=== PATIENT | female | born 1980 | race American Indian/Alaskan Native ===

== ENCOUNTER 2017-03-30 21:02 | Emergency (ER) | payer MEDICAID ==
[2017-03-30 21:02] VITALS: BMI 31.1
[2017-03-30 21:34] VITALS: RESP 18; TEMP 98.4
[2017-03-30] MEDS ORDERED: Sodium Chloride 0.9% 1,000 ML IV ONE (22:57)
--- NOTE | 2017-03-30 22:57 | C.PDOC ---
History Of Present Illness 36 y/o female presents to ED with c/o aching, cramping, dull abdominal pain onset after eating at a diner at 2:00 PM today. Patient notes she took Maalox with no relief. Denies fever, chills, nausea, vomiting, diarrhea, or urinary symptoms. Time Seen by Provider: 03/30/17 22:57 Chief Complaint (Nursing): Abdominal Pain History Per: Patient History/Exam Limitations: no limitations Onset/Duration Of Symptoms: Hrs Current Symptoms Are (Timing): Still Present Context: Food Severity: Mild Pain Scale Rating Of: 4 Location Of Pain/Discomfort: Diffuse Radiation Of Pain To:: None Quality Of Discomfort: Dull, Aching, Cramping Associated Symptoms: denies: Fever, Chills, Nausea, Vomiting, Diarrhea, Urinary Symptoms Recent travel outside of the [place]: No Past Medical History Reviewed: Historical Data, Nursing Documentation, Vital Signs Vital Signs: Last Vital Signs Temp 98.4 F 03/31/17 00:30 Pulse 70 03/31/17 00:30 Resp 18 03/31/17 00:30 BP 101/68 03/31/17 00:30 Pulse Ox 98 03/31/17 00:30 - Medical History PMH: Sickle Cell Disease (Sickel Cell Anemia) - [facility] Procedures SUTURE OF LIP LACERATION (10/19/13) TETANUS TOXOID ADMINIST (10/19/13) Family History: States: Unknown Family Hx - Social History Hx Tobacco Use: No Hx Alcohol Use: No Hx Substance Use: No - Immunization History Hx Tetanus Toxoid Vaccination: No Hx Influenza Vaccination: No Hx Pneumococcal Vaccination: No Review Of Systems Constitutional: Negative for: Fever, Chills Cardiovascular: Negative for: Chest Pain Respiratory: Negative for: Cough, Shortness of Breath Gastrointestinal: Positive for: Abdominal Pain. Negative for: Nausea, Vomiting , Diarrhea Genitourinary: Negative for: Dysuria, Frequency Skin: Negative for: Rash Neurological: Negative for: Weakness Psych: Negative for: Anxiety Physical Exam - Physical Exam Appears: Non-toxic, No Acute Distress Skin: Warm, Dry Eye(s): bilateral: Normal Inspection Oral Mucosa: Moist Neck: Supple Chest: Symmetrical Cardiovascular: Rhythm Regular Respiratory: Normal Breath Sounds, No Rales, No Rhonchi, No Wheezing Gastrointestinal/Abdominal: Soft, Tenderness (mild, diffuse), No Distention, No Guarding, No Rebound Back: Normal Inspection Extremity: Normal ROM, Capillary Refill (< 2 sec. ) Extremity: Bilateral: Normal Color And Temperature Neurological/Psych: Oriented x3, Normal Speech, Normal Cognition Gait: Steady ED Course And Treatment - Laboratory Results Result Diagrams: 03/30/17 23:22 03/30/17 23:22 O2 Sat by Pulse Oximetry: 99 (RA) Pulse Ox Interpretation: Normal Progress Note: Treated with Zofran and IVFs. Labs ordered and reviewed. Reevaluation Time: 00:49 Reassessment Condition: Improved Disposition Counseled Patient/Family Regarding: Studies Performed, Diagnosis, Need For Followup - Disposition Disposition: HOME/ ROUTINE Disposition Time: 22:57 Condition: FAIR Additional Instructions: Please follow up with your BEEF SELECTOR and have a repeat HCG level in 5-7 days. Do return if heavy vaginal bleeding, clots or pain Instructions: (ED), Abdominal Pain in (ED) - Clinical Impression Clinical Impression: , Abdominal pain during - Scribe Statement The provider has reviewed the documentation as recorded by the Travis Oliva Provider Attestation: All medical record entries made by the Travis were at my direction and personally dictated by me. I have reviewed the chart and agree that the record accurately reflects my personal performance of the history, physical exam, medical decision making, and the department course for this patient. I have also personally directed, reviewed, and agree with the discharge instructions and disposition.
[2017-03-30] MEDS ORDERED: Sodium Chloride 0.9% 1,000 ML ONE (23:22)
[2017-03-30 23:28] LABS: BASO % 0.5 % (0.0-2.0); EOS % 0.8 % (0.0-4.0); HEMATOCRIT 35.5 % (34.0-47.0); LYMPH % 34.2 % (20.0-40.0); MEAN CORPUSCULAR HEMOGLOBIN 28.4 pg (27.0-31.0); MEAN CORPUSCULAR HGB CONC 32.6 g/dL (33.0-37.0); MEAN PLATELET VOLUME 8.1 fL (7.2-11.7); MONO # 0.5 K/uL (0.0-0.8); MONO % 8.7 % (0.0-10.0); NRBC % 0.1 % (0.0-2.0); RED CELL DISTRIBUTION WIDTH 15.4 % (11.5-14.5); RETIC% 1.7 % (0.5-1.5); WHITE BLOOD COUNT 5.8 K/uL (4.8-10.8)
[2017-03-30 23:36] LABS: CHLORIDE 105 mmol/L (98-107); SODIUM 136 mmol/L (132-148)
[2017-03-30 23:38] LABS: AST/SGOT 23 U/L (14-36); BILIRUBIN,TOTAL 0.7 mg/dL (0.2-1.3); CARBON DIOXIDE 23 mmol/L (22-30); GFR AFRICAN-AMERICAN > 60
[2017-03-30 23:39] LABS: ALKALINE PHOSPHATASE 58 U/L (38-126); ALT/SGPT 22 U/L (9-52); BLOOD UREA NITROGEN 9 mg/dL (7-17); CALCIUM 8.7 mg/dl (8.6-10.4); GLUCOSE,RANDOM 94 mg/dL (65-105); TOTAL PROTEIN 7.5 g/dL (6.3-8.3)
[2017-03-30 23:43] LABS: RBC URINE 38 /hpf (0-3); URINE BACTERIA FEW (<OCC); URINE BILIRUBIN NEGATIVE (NEGATIVE); URINE BLOOD 3+ (NEGATIVE); URINE COLOR Yellow (YELLOW); URINE GLUCOSE (UA) NORMAL (Normal); URINE KETONE NEGATIVE (NEGATIVE); URINE LEUKOCYTE ESTERASE TRACE Leu/uL (Negative); URINE PROTEIN NEGATIVE (NEGATIVE); URINE UROBILINOGEN NORMAL mg/dL (0.2-1.0); WBC URINE 5 /hpf (0-5)
[2017-03-31 00:32] VITALS: BP 101/68; PULSE 70
[2017-03-31 00:51] VITALS: O2SAT 99
== END 2017-03-31 01:00 | disposition home or self-care (01) ==
LOC: C.ER 21:02
DX: O26.891 Other specified pregnancy related conditions, first trimester (principal); R10.84 Generalized abdominal pain; Z3A.00 Weeks of gestation of pregnancy not specified
CPT/HCPCS: 80053; 81001; 83690; 84702; 84703; 85025; 85044; 85610; 85730; 96361; 96374; 99284; J2405; J7040

== ENCOUNTER 2017-04-02 20:28 | Emergency (ER) | payer MEDICAID ==
[2017-04-02 20:29] VITALS: BMI 31.1
[2017-04-02 20:37] VITALS: O2SAT 99
[2017-04-02] MEDS ORDERED: Sodium Chloride 0.9% 1,000 ML IV ONE (21:00)
--- NOTE | 2017-04-02 21:05 | C.PDOC ---
History Of Present Illness A 36 y/o female who's LMP was February 20, c/o persistent vaginal bleeding and abdominal pain that has been worsening over the past 2 days. Pt was here 2 days ago for the same complaint. Pt denies fever, chills, nausea, vomiting, diarrhea , vaginal discharge, chest pain, dysuria, hematuria, or any other complaints. Time Seen by Provider: 04/02/17 21:03 Chief Complaint (Nursing): Abdominal Pain History Per: Patient History/Exam Limitations: no limitations Onset/Duration Of Symptoms: Days Current Symptoms Are (Timing): Still Present Severity: Mild Location Of Pain/Discomfort: Suprapubic Radiation Of Pain To:: None Associated Symptoms: denies: Fever, Chills, Nausea, Vomiting Recent travel outside of the [place]: No Additional History Per: Patient Abnormal Vaginal Bleeding: Yes Last Menstral Period: February 20, 2017 Past Medical History Reviewed: Historical Data, Nursing Documentation, Vital Signs Vital Signs: Last Vital Signs Temp 98.7 F 04/03/17 00:05 Pulse 82 04/03/17 00:05 Resp 20 04/03/17 00:05 BP 107/66 04/03/17 00:05 Pulse Ox 99 04/03/17 00:41 - Medical History PMH: Sickle Cell Disease (Sickel Cell Anemia) Denies: Chronic Kidney Disease - [facility] Procedures SUTURE OF LIP LACERATION (10/19/13) TETANUS TOXOID ADMINIST (10/19/13) Family History: States: Unknown Family Hx - Social History Hx Tobacco Use: No Hx Alcohol Use: No Hx Substance Use: No - Immunization History Hx Tetanus Toxoid Vaccination: No Hx Influenza Vaccination: No Hx Pneumococcal Vaccination: No Review Of Systems Except As Marked, All Systems Reviewed And Found Negative. Constitutional: Negative for: Fever, Chills Cardiovascular: Negative for: Chest Pain Gastrointestinal: Positive for: Abdominal Pain. Negative for: Nausea, Vomiting , Diarrhea Genitourinary: Positive for: Vaginal Bleeding. Negative for: Dysuria, Hematuria , Vaginal Discharge Physical Exam - Physical Exam Appears: Non-toxic, No Acute Distress Skin: Warm, Dry Head: Atraumatic, Normacephalic Eye(s): bilateral: Normal Inspection Oral Mucosa: Moist Neck: Trachea Midline, Supple Chest: Symmetrical Cardiovascular: Rhythm Regular Respiratory: Normal Breath Sounds, No Accessory Muscle Use, No Rales, No Rhonchi , No Wheezing Gastrointestinal/Abdominal: Soft, Tenderness (Hypogastric tenderness), No Guarding, No Rebound Back: Normal Inspection, No CVA Tenderness Pelvic: Vaginal Bleeding (Minimal bleeding noted), No Vaginal Discharge, No Cervical Motion Tenderness, No Cervix Open (Closed) Neurological/Psych: Oriented x3, Normal Speech, Normal Cognition, Other (No focal deficit) Gait: Steady ED Course And Treatment - Laboratory Results Result Diagrams: 04/02/17 21:19 04/02/17 21:19 O2 Sat by Pulse Oximetry: 99 (RA) Pulse Ox Interpretation: Normal - CT Scan/US US Other Rad Studies (CT/US): Interpreted By Me, Read By Radiologist CT/US Interpretation: EXAM: US First Trimester, Transabdominal. CLINICAL HISTORY: 36 years old, female; Signs and symptoms; Other: Vag spotting ; ; Prior surgery; Surgery. date: 6+ months; Surgery type: Ruptured ectopic 2009 one of fallopian tube removed; Patient HX: Vag spotting / pain; Additional info: Abd pain/ vaginal bleed. TECHNIQUE: Real-time transabdominal obstetrical ultrasound of the maternal pelvis and a first trimester. with image documentation. COMPARISON: No relevant prior studies available. FINDINGS: Gestation: No intrauterine gestational sac. Uterus/cervix: Endometrium: 1.4 cm in thickness. Closed cervix. Ovaries: RIGHT ovary: Normal. LEFT ovary: Probable 1.6 x 1.6 x 1.6 cm corpus luteal cyst. No. adnexal masses. Free fluid: No significant free fluid. IMPRESSION: 1. No intrauterine gestation. DDX: Early IUP, missed , ectopic . 2. Incidental/non-acute findings are described above. EXAM: US , Transvaginal. CLINICAL HISTORY: 36 years old, female; Signs and symptoms; Other: Vag spotting; ; Prior surgery; Surgery. date: 6+ months; Surgery type: Ruptured ectopic 2009 one of fallopian tube removed; Patient HX: Vag spotting / pain; Additional info: Abd pain/ vaginal bleed. TECHNIQUE: Real -time transvaginal obstetrical ultrasound of the maternal pelvis and a first trimester . with image documentation. Transvaginal imaging was used for better evaluation of the fetus and. adnexa. COMPARISON: No relevant prior studies available. FINDINGS: Gestation: No intrauterine gestational sac. Uterus/cervix: Endometrium: 1.4 cm in thickness. Closed cervix. Ovaries: RIGHT ovary: Normal. LEFT ovary: Probable 1.6 x 1.6 x 1.6 cm corpus luteal cyst. No. adnexal masses. Free fluid: No significant free fluid. IMPRESSION: 1. No intrauterine gestation. DDX: Early IUP, missed , ectopic . 2. Incidental/non-acute findings are described above. Medical Decision Making Medical Decision Making: Impression: A 36 y/o female who's LMP was February 20, c/o persistent vaginal bleeding and abdominal pain that has been worsening over the past 2 days. Plans: Blood labs IV fluids US Pelvis UA Reassess Disposition Counseled Patient/Family Regarding: Diagnosis - Disposition Referrals: [facility] [Outside] Disposition: HOME/ ROUTINE Disposition Time: 00:29 Condition: STABLE Instructions: Threatened Miscarriage (ED) Forms: Work Excuse - POA Present On Arrival: None - Clinical Impression Clinical Impression: Threatened in early - Scribe Statement The provider has reviewed the documentation as recorded by the Scribe Marilyn maddox All medical record entries made by the Chikaibabbie were at my direction and personally dictated by me. I have reviewed the chart and agree that the record accurately reflects my personal performance of the history, physical exam, medical decision making, and the department course for this patient. I have also personally directed, reviewed, and agree with the discharge instructions and disposition.
[2017-04-02] MEDS ORDERED: Sodium Chloride 0.9% 1,000 ML ONE (21:06)
[2017-04-02 21:13] LABS: RBC URINE 4 /hpf (0-3); URINE BACTERIA FEW (<OCC); URINE BILIRUBIN NEGATIVE (NEGATIVE); URINE BLOOD 3+ (NEGATIVE); URINE COLOR Yellow (YELLOW); URINE GLUCOSE (UA) NORMAL (Normal); URINE KETONE NEGATIVE (NEGATIVE); URINE LEUKOCYTE ESTERASE TRACE Leu/uL (Negative); URINE PROTEIN 1+ mg/dL (NEGATIVE); URINE UROBILINOGEN NORMAL mg/dL (0.2-1.0); WBC URINE 4 /hpf (0-5)
[2017-04-02 21:27] LABS: BASO % 0.7 % (0.0-2.0); EOS % 0.8 % (0.0-4.0); HEMATOCRIT 36.2 % (34.0-47.0); LYMPH # 1.9 K/uL (1.0-4.3); LYMPH % 33.4 % (20.0-40.0); MEAN CORPUSCULAR HEMOGLOBIN 28.2 pg (27.0-31.0); MEAN CORPUSCULAR HGB CONC 32.4 g/dL (33.0-37.0); MEAN PLATELET VOLUME 8.7 fL (7.2-11.7); MONO # 0.4 K/uL (0.0-0.8); MONO % 6.8 % (0.0-10.0); NRBC % 0.1 % (0.0-2.0); RED CELL DISTRIBUTION WIDTH 15.4 % (11.5-14.5); WHITE BLOOD COUNT 5.8 K/uL (4.8-10.8)
[2017-04-02 21:37] LABS: CHLORIDE 101 mmol/L (98-107)
[2017-04-02 21:38] LABS: POTASSIUM 3.8 mmol/L (3.6-5.2); SODIUM 134 mmol/L (132-148)
[2017-04-02 21:40] LABS: ALKALINE PHOSPHATASE 55 U/L (38-126); ALT/SGPT 20 U/L (9-52); AST/SGOT 22 U/L (14-36); BILIRUBIN,TOTAL 0.8 mg/dL (0.2-1.3); BLOOD UREA NITROGEN 6 mg/dL (7-17); CARBON DIOXIDE 22 mmol/L (22-30); GFR AFRICAN-AMERICAN > 60; TOTAL PROTEIN 7.4 g/dL (6.3-8.3)
[2017-04-02 21:41] LABS: CALCIUM 8.4 mg/dl (8.6-10.4); GLUCOSE,RANDOM 98 mg/dL (65-105)
[2017-04-03 00:07] VITALS: BP 107/66; PULSE 82; RESP 20; TEMP 98.7
--- NOTE | 2017-04-03 00:23 | US ---
EXAM: US First Trimester, Transabdominal CLINICAL HISTORY: 36 years old, female; Signs and symptoms; Other: Vag spotting; ; Prior surgery; Surgery date: 6+ months; Surgery type: Ruptured ectopic 2009 one of fallopian tube removed; Patient HX: Vag spotting / pain; Additional info: Abd pain/ vaginal bleed TECHNIQUE: Real-time transabdominal obstetrical ultrasound of the maternal pelvis and a first trimester with image documentation. COMPARISON: No relevant prior studies available. FINDINGS: Gestation: No intrauterine gestational sac. Uterus/cervix: Endometrium: 1.4 cm in thickness. Closed cervix. Ovaries: RIGHT ovary: Normal. LEFT ovary: Probable 1.6 x 1.6 x 1.6 cm corpus luteal cyst. No adnexal masses. Free fluid: No significant free fluid. IMPRESSION: 1. No intrauterine gestation. DDX: Early IUP, missed , ectopic . 2. Incidental/non-acute findings are described above. EXAM: US , Transvaginal CLINICAL HISTORY: 36 years old, female; Signs and symptoms; Other: Vag spotting; ; Prior surgery; Surgery date: 6+ months; Surgery type: Ruptured ectopic 2009 one of fallopian tube removed; Patient HX: Vag spotting / pain; Additional info: Abd pain/ vaginal bleed TECHNIQUE: Real-time transvaginal obstetrical ultrasound of the maternal pelvis and a first trimester with image documentation. Transvaginal imaging was used for better evaluation of the fetus and adnexa. COMPARISON: No relevant prior studies available. FINDINGS: Gestation: No intrauterine gestational sac. Uterus/cervix: Endometrium: 1.4 cm in thickness. Closed cervix. Ovaries: RIGHT ovary: Normal. LEFT ovary: Probable 1.6 x 1.6 x 1.6 cm corpus luteal cyst. No adnexal masses. Free fluid: No significant free fluid.
== END 2017-04-03 01:24 | disposition home or self-care (01) ==
LOC: C.ER 20:28
DX: O20.0 Threatened abortion (principal); Z3A.00 Weeks of gestation of pregnancy not specified

== ENCOUNTER 2017-04-05 03:43 | Observation (INO) | payer MEDICAID ==
[2017-04-05 03:43] VITALS: BMI 31.1
[2017-04-05] MEDS ORDERED: Sodium Chloride 0.9% 1,000 ML IV ONE ×3 (04:13→10:22)
--- NOTE | 2017-04-05 04:13 | C.PDOC ---
History Of Present Illness Patient presents to the ED with complaints of sharp left flank pain beginning just prior to arrival awaking her from her sleep. Patient states she is and has had intermittent bleeding since finding out she was . Patient's hCG yesterday was 3749, slight increase from two days prior to that at 3055. Patient denies any nausea, vomiting, or other complaints at this time. Time Seen by Provider: 04/05/17 04:13 Chief Complaint (Nursing): Female Genitourinary History Per: Patient History/Exam Limitations: no limitations Onset/Duration Of Symptoms: Hrs (prior to arrival ) Current Symptoms Are (Timing): Still Present Severity: Moderate Pain Scale Rating Of: 6 Quality Of Discomfort: Sharp Associated Symptoms: denies: Fever, Chills, Nausea, Vomiting, Diarrhea Recent travel outside of the [place]: No Abnormal Vaginal Bleeding: Yes Past Medical History Reviewed: Historical Data, Nursing Documentation, Vital Signs Vital Signs: Last Vital Signs Temp 97.7 F 04/05/17 04:03 Pulse 74 04/05/17 04:03 Resp 20 04/05/17 04:03 BP 118/78 04/05/17 04:03 Pulse Ox 100 04/05/17 06:10 - Medical History PMH: Sickle Cell Disease (Sickel Cell Anemia) - [facility] Procedures SUTURE OF LIP LACERATION (10/19/13) TETANUS TOXOID ADMINIST (10/19/13) Family History: States: Unknown Family Hx - Social History Hx Tobacco Use: No Hx Alcohol Use: No Hx Substance Use: No - Immunization History Hx Tetanus Toxoid Vaccination: No Hx Influenza Vaccination: No Hx Pneumococcal Vaccination: No Review Of Systems Constitutional: Negative for: Fever, Chills Cardiovascular: Negative for: Chest Pain, Palpitations Respiratory: Negative for: Cough, Shortness of Breath Gastrointestinal: Positive for: Other (left flank pain ). Negative for: Nausea , Vomiting, Diarrhea Genitourinary: Positive for: Vaginal Bleeding Physical Exam - Physical Exam Appears: Non-toxic, Other (in distress) Skin: Warm, Dry Head: Normacephalic Eye(s): bilateral: Normal Inspection, PERRL, EOMI Oral Mucosa: Moist Neck: Supple Chest: Symmetrical, No Deformity Cardiovascular: Rhythm Regular Respiratory: No Rales, No Rhonchi, No Wheezing Gastrointestinal/Abdominal: Soft, No Distention, No Guarding, No Rebound, Other (Left flank pain ) Back: No CVA Tenderness, No Vertebral Tenderness, No Paraspinal Tenderness Extremity: Normal ROM, No Tenderness, Capillary Refill (good capillary refill, less than 2 seconds ) Extremity: Bilateral: Atraumatic Neurological/Psych: Oriented x3 Gait: Steady ED Course And Treatment - Laboratory Results Result Diagrams: 04/05/17 05:36 04/05/17 05:36 O2 Sat by Pulse Oximetry: 100 (room air ) Pulse Ox Interpretation: Normal Progress Note: spoke with dr ledezma about the possibility of the pt having an ectopic. US is pending. 5:[address] anaya at bedside with the pt. 6:09 vitals stable Disposition Counseled Patient/Family Regarding: Studies Performed, Diagnosis - Disposition Disposition Time: 04:13 Condition: UNKNOWN - Clinical Impression Clinical Impression: Vaginal bleeding - Scribe Statement The provider has reviewed the documentation as recorded by the Scribe Cheri Meneses All medical record entries made by the Scribe were at my direction and personally dictated by me. I have reviewed the chart and agree that the record accurately reflects my personal performance of the history, physical exam, medical decision making, and the department course for this patient. I have also personally directed, reviewed, and agree with the discharge instructions and disposition. Physician Patient Turnover Patient Signed Over To: Noreen Rocha Handoff Comments: pending us resuls and admission to dr smith
[2017-04-05] MEDS ORDERED: Sodium Chloride 0.9% 1,000 ML ONE (05:30)
[2017-04-05 05:40] LABS: BASO % 0.8 % (0.0-2.0); EOS # 0.1 K/uL (0.0-0.7); EOS % 2.1 % (0.0-4.0); HEMOGLOBIN 11.9 g/dL (11.0-16.0); LYMPH # 1.8 K/uL (1.0-4.3); LYMPH % 34.1 % (20.0-40.0); MEAN CORPUSCULAR HEMOGLOBIN 28.4 pg (27.0-31.0); MEAN CORPUSCULAR HGB CONC 32.7 g/dL (33.0-37.0); MEAN PLATELET VOLUME 8.5 fL (7.2-11.7); MONO # 0.5 K/uL (0.0-0.8); MONO % 8.7 % (0.0-10.0); NEUT # 2.8 K/uL (1.8-7.0); NEUT % 54.3 % (50.0-75.0); RBC 4.19 Mil/uL (3.80-5.20); RED CELL DISTRIBUTION WIDTH 15.2 % (11.5-14.5); WHITE BLOOD COUNT 5.2 K/uL (4.8-10.8)
[2017-04-05 06:00] LABS: ALBUMIN 3.9 g/dL (3.5-5.0)
[2017-04-05 06:03] LABS: ALB/GLOB RATIO 0.9 (1.0-2.1); AST/SGOT 26 U/L (14-36); BLOOD UREA NITROGEN 8 mg/dL (7-17); GFR AFRICAN-AMERICAN > 60; GFR NON-AFRICAN AMERICAN > 60
[2017-04-05 06:04] LABS: ALT/SGPT 19 U/L (9-52); CALCIUM 8.7 mg/dl (8.6-10.4)
--- NOTE | 2017-04-05 06:38 | CP.PCM.CON ---
History of Present Illness - History of Present Illness History of Present Illness: Asked by Dr. Gunn to evaluate patient: h/o ectopic, no with worsening abdominal pain and vaginal bleeding Patient received in E.D. Bed 11, significant present. Patient sitting up in NAD 36 yo , LMP 02/20/17, 6w 2d, Patient presents with c/o worsening lower abodminal pain, onset 0230 hours, described as "excruciating, throbbing pain, that hurt when I walk, breathe; even when I went to relieve myself. I knew it shouldn't hurt that much". Denies loss of consciousness; nausea or vomiting. Patient also with vaginal bleeding x 1 week. Ate a meal of steak, shrimp, mashed potatoes and corn at approx 0200 hours. HPI: 2 prior E.D. visit c/o abdominal pain, and vaginal spotting, 03/30 and . Quantitative HCG were obtained 03/30, 2204.30 and 04/02 3055.40. Ultrasound showed no discrete IUP and normal ovaries bilaterally and no free fluid. Patient with h/o ectopic 2009, S/P salpingectomy and 2 intrauterine pregnancies subsequently. Patient has a priv veterinary surgeon, Dr. Perez: she has been followed by him for this ; she was given the option of methotrexate with the concern of possible ectopic . As this is a desired , patient opted for conservative management. Dr. Perez has been notified P Ob.: 2009, ectopic . 2012, C/S, male, 5lb 14oz, [facility], [facility] [place]. 12/2015 , spont ab approx 4 week. P LIVE IN [employer] [place]: 9 x monthly x 5. Denies STIs or abnormal Pap PMH: sickle cell anemia; last crisis 2013 PSH: C/S; laparoscopic (right) salpingectomy; back surgery (L5-L6) Allergic: penicilin = rash Meds: PNV - QD; Folic acid 500 mg po QD; Demerol 10 mg p.o., PRN Soc Hx: denies tobacco, illicit drug or EtOH use. 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 Wtih FOB x 10 years; lives with him and htheir son Fam Hx: Mother alive 54y.o.- breast CA survivor, diagnosed age 35. Father alive 62 y.o. HTN, DM, hypercholesterol. MGM - breast CA Review of Systems - Review of Systems All systems: reviewed and no additional remarkable complaints except - Reproductive: Female Reproductive:Female: As Per HPI Past Patient History - Infectious Disease Hx of Infectious Diseases: None - Past Social History Smoking Status: Never Smoked Alcohol: None Drugs: Denies Home Situation {Lives}: With Family - CARDIAC Hx Cardiac Disorders: No - PULMONARY Hx Respiratory Disorders: No - NEUROLOGICAL Hx Neurological Disorder: No - HEENT Hx HEENT Problems: No - RENAL Hx Chronic Kidney Disease: No - ENDOCRINE/METABOLIC Hx Endocrine Disorders: No - HEMATOLOGICAL/ONCOLOGICAL Hx Sickle Cell Disease: Yes (Sickel Cell Anemia) - INTEGUMENTARY Hx Dermatological Problems: No - MUSCULOSKELETAL/RHEUMATOLOGICAL Hx Musculoskeletal Disorders: No - GASTROINTESTINAL Hx Gastrointestinal Disorders: No - GENITOURINARY/GYNECOLOGICAL Hx Genitourinary Disorders: No - PSYCHIATRIC Hx Psychophysiologic Disorder: No Hx Substance Use: No - SURGICAL HISTORY Hx Surgeries: Yes Hx Section: Yes (2012) Hx Musculoskeletal Surgery: Yes (lower back) Other/Comment: ectopic surgery 2009 - ANESTHESIA Hx Anesthesia: Yes Hx Anesthesia Reactions: No Meds Home Medications: Home Medication List Medication Instructions Recorded Confirmed Type oxyCODONE/Acetaminophen [Percocet 2 tab PO Q4H PRN #20 tab 04/06/17 Rx 5/325 mg Tab] Allergies/Adverse Reactions: Allergies Allergy/AdvReac Type Severity Reaction Status Date / Time Penicillins Allergy RASH Verified 04/05/17 04:06 Physical Exam - Constitutional Appears: No Acute Distress - Head Exam Head Exam: NORMAL INSPECTION - Eye Exam Eye Exam: Normal appearance - ENT Exam ENT Exam: Mucous Membranes Moist - Neck Exam Neck exam: Positive for: Normal Inspection - Respiratory Exam Respiratory Exam: Clear to Auscultation Bilateral, NORMAL BREATHING PATTERN - Cardiovascular Exam Cardiovascular Exam: REGULAR RHYTHM - GI/Abdominal Exam GI & Abdominal Exam: Normal Bowel Sounds Additional comments: Haled Pfannenstiel scar. Obese; Soft. (+) rebound tenderness in LLQ; no peritoneal signs - Exam Additional comments: No cervical motion tenderness. (+) left adnexal tenderness; no right adnexal tenderness. No appreciable adnexal masses bilaterally. AV uterus, approx 12 weeks - Extremities Exam Extremities exam: Positive for: full ROM, normal inspection - Back Exam Back exam: NORMAL INSPECTION - Neurological Exam Neurological exam: Alert, Normal Gait, Oriented x3 - Psychiatric Exam Psychiatric exam: Normal Affect, Normal Mood - Skin Skin Exam: Dry, Intact, Normal Color, Warm Results - Vital Signs Recent Vital Signs: Last Vital Signs Temp 97.7 F 04/05/17 04:03 Pulse 74 04/05/17 04:03 Resp 20 04/05/17 04:03 BP 118/78 04/05/17 04:03 Pulse Ox 100 04/05/17 06:10 - Labs Result Diagrams: 04/06/17 08:53 04/05/17 05:36 Labs: Laboratory Results - last 24 hr 04/05/17 04/05/17 05:36 05:36 WBC 5.2 RBC 4.19 Hgb 11.9 Hct 36.4 MCV 87.0 MCH 28.4 MCHC 32.7 L RDW 15.2 H Plt Count 221 MPV 8.5 Neut % (Auto) 54.3 Lymph % (Auto) 34.1 [place] % (Auto) 8.7 Eos % (Auto) 2.1 Baso % (Auto) 0.8 Neut # 2.8 Lymph # 1.8 [place] # 0.5 Eos # 0.1 Baso # 0.0 Sodium 136 Potassium 4.8 Chloride 101 Carbon Dioxide 23 Anion Gap 17 BUN 8 Creatinine 0.7 Est GFR ( Amer) > 60 Est GFR (Non-Af Amer) > 60 Random Glucose 93 Calcium 8.7 Total Bilirubin 0.9 AST 26 ALT 19 Alkaline Phosphatase 56 Total Protein 8.2 Albumin 3.9 Globulin 4.3 H Albumin/Globulin Ratio 0.9 L Assessment & Plan - Assessment and Plan (Free Text) Assessment: Laboratory results and ultrasound from 03/30/17 reviewed by me personally. 36 yo P1021, 6w 2d by LMP, 1 week vaginal bleeding and lower abdominal pain; latter of which worsened this morning. Patient with h/o ectopic : HCG with suboptimal increase. Concern for ectopic was discussed with patient. Patient advised to not eat anything further. Patient left the E.D. for ultrasound evaluation in stable condition. Dr. Perez is aware; will advise him of ultrasound results when known. Plan: 1) further management pending ultrasound evaluation - Date & Time Date: 04/05/17 Time: 06:47
[2017-04-05 07:27] LABS: SQUAMOUS EPITHIAL 6 /hpf (0-5); URINE BILIRUBIN NEGATIVE (NEGATIVE); URINE BLOOD 3+ (NEGATIVE); URINE CLARITY Hazy (Clear); URINE COLOR Red (YELLOW); URINE GLUCOSE (UA) NORMAL (Normal); URINE LEUKOCYTE ESTERASE NEG Leu/uL (Negative); URINE NITRATE NEGATIVE (NEGATIVE); URINE PROTEIN 2+ mg/dL (NEGATIVE); URINE UROBILINOGEN NORMAL mg/dL (0.2-1.0)
--- NOTE | 2017-04-05 07:30 | US ---
EXAM: US Pelvis Complete, Transabdominal CLINICAL HISTORY: 36 years old, female; Pain; Pelvic pain; ; Prior surgery; Surgery date: 6+ months; Surgery type: One the feelopian tube removed h/o ectopic; Patient HX: Prior 04-02-17; Additional info: Flank pain, poss ectopic TECHNIQUE: Real-time transabdominal pelvic ultrasound (complete) with image documentation. COMPARISON: No relevant prior studies available. FINDINGS: Limitations: No intrauterine gestation. Endometrium measures approximately 11 mm. Limited visualization of lower uterine segment and cervix. Uterus/cervix: Unremarkable. Normal endometrial stripe thickness. No myometrial mass. Right ovary: Right ovary not visualized. Right adnexal fluid. Left ovary: Left adnexal mass measures 4.4 x 3.9 x 5.3 cm. Contains eccentric focus with donut configuration measuring 2.4 x 1.9 x 1.7 cm. Left ovary measures 2.3 x 1.3 x 2.7 cm. Also small amount of free fluid. Normal blood flow. Free fluid: Fluid in cul-de-sac. Bladder: Unremarkable as visualized. Wall is normal thickness for degree of distention. IMPRESSION: Complex left adnexal mass with eccentric donut shaped focus, most suspicious for ectopic with surrounding hematoma. EXAM: US Pelvis, Transvaginal CLINICAL HISTORY: 36 years old, female; Pain; Pelvic pain; ; Prior surgery; Surgery date: 6+ months; Surgery type: One the feelopian tube removed h/o ectopic; Patient HX: Prior 04-02-17; Additional info: Flank pain, poss ectopic TECHNIQUE: Real-time transvaginal pelvic ultrasound (complete) with image documentation. Transvaginal imaging was used for better evaluation of the endometrium and adnexa. EXAM DATE/TIME: 04/05/2017 5:10 AM COMPARISON: PELVIS/TRANSVAG US 04/02/2017 11:16:35 PM FINDINGS: Uterus/cervix: Uterus measures 12 x 5.5 x 7.6 cm. No intrauterine gestation. Endometrium measures 1.5 cm. cervix appears normal. No myometrial mass. Right ovary: Right ovary not optimally visualized, estimated to be 0.3 x 1.8 x 2.4 cm. Left ovary: Left ovary not definitively visualized. The donut shaped left adnexal mass not as well-demonstrated as on transabdominal study. Free fluid: Small amount of free fluid in cul-de-sac. Bladder: Empty bladder which cannot be evaluated with this probe. IMPRESSION: Left adnexal mass not well demonstrated as on transabdominal study. See above. Critical findings were communicated with Dr. Rocha on 04/05/2017 7:28 AM EDT. The results were understood and acknowledged.
[2017-04-05 07:43] LABS: URINE BACTERIA FEW (<OCC)
[2017-04-05] MEDS ORDERED: Morphine 4 MG/ML VIAL ONE (07:52)
[2017-04-05 08:10] LABS: PROTHROMBIN TIME 11.4 SECONDS (9.7-12.2)
--- NOTE | 2017-04-05 08:59 | CP.SDSHP ---
Same Day Surgery H & P - History Proposed Procedure: diagnostic Laparascopy with Possible salpingectomy - Previous Medical/Surgical History Previous Surgical History: Section,. Left Salpingectomy - Allergies Allergies: Allergies Penicillins Allergy (Verified 04/05/17 04:06) RASH - Physical Exam Mental Status: Alert & Oriented x3 Heart: WNL Lungs: WNL GI: WNL - {Optional Preform as Required} Abdomen: WNL Rectal: WNL Integument: WNL SEAMAN OFFICER: WNL : WNL - Impression Impression: Hemoperitoneum with Ectopic gestation. Pt. Evaluated Today:Candidate for Anesthesia & Procedure: Yes - Date & Time Date: 04/05/17 Time: 08:58 Short Stay Discharge - Short Stay Discharge Admitting Diagnosis/Reason for Visit: ECTOPIC Disposition: HOME/ ROUTINE Medications: RX: oxyCODONE/Acetaminophen [Percocet 5/325 mg Tab] 2 tab PO Q4H PRN #20 tab PRN Reason: Pain, Severe (8-10) Instructions: Salpingectomy (DC) Additional Instructions (Diet, Activity): take meds as ordered, drink plenty of fluids, eat fruits and vegetables, keep operative sites clean and dry, call md for appointment, notify md. for fever as needed, no sex till advised
[2017-04-05] MEDS ORDERED: Clindamycin 300 mg/2 ml Inj ONE (09:33)
[2017-04-05] MEDS ORDERED: Propofol 10 mg/ml Inj (20 ML) ONE (09:46)
[2017-04-05] MEDS ORDERED: Sodium Citrate/Citric Acid 15 ml Sol ONE (09:53)
[2017-04-05] MEDS ORDERED: Lactated Ringer's 1,000 ML IV ONE ×2 (10:40→11:38)
[2017-04-05] MEDS ORDERED: Neostigmine Methylsulfate 3mg/3ml Syringe IV ONE (11:50)
[2017-04-05] MEDS: HYDROmorphone 0.5 mg/0.5 ml ISec IVP PRN ×2 (12:10→13:00)
[2017-04-05] MEDS ORDERED: Lactated Ringer's 1,000 ML IV SCH (12:15)
--- NOTE | 2017-04-05 12:40 | PCM.SURG1 ---
Surgeon's Initial Post Op Note - Surgeon's Notes Surgeon: Dr Perez Garnishment Specialist: Dr Ervin Type of Anesthesia: General Endo Anesthesia Administered By: Dr Moreno Pre-Operative Diagnosis: Ruptured Ectopic gestation Operative Findings: 6-8wk sized anteverted uterus with a left leaking ampullary ectopic gestation. hemoperitoneum of about 100mls. Fibrinous adhesions betwwen the ectopic and the ectopic gestation. Fibrinous adhesions between the abdominal wall and the liver at laparoscopy. The Right fallopian tube was absent. IVF intake-700mls. Urine output 200mls. EBL- 150mls Post-Operative Diagnosis: Same as preop diagnosis Operation Performed: Laparoscopy with left Partial Salpingectomy Specimen/Specimens Removed: Ectopic gestation Estimated Blood Loss: EBL {In ML}: 150 Post-Op Condition: Good Date of Surgery/Procedure: 04/05/17 Time of Surgery/Procedure: 12:41
[2017-04-05] MEDS: Oxycodone/Acetaminophen 5/325 mg Tab PO PRN (21:36)
[2017-04-06 00:28] VITALS: RESP 20
[2017-04-06] MEDS: Oxycodone/Acetaminophen 5/325 mg Tab PO PRN (08:17)
[2017-04-06 08:23] VITALS: BP 97/65; PULSE 79; TEMP 99; O2SAT 97
[2017-04-06 09:06] LABS: BASO % 0.2 % (0.0-2.0); EOS # 0.1 K/uL (0.0-0.7); HEMOGLOBIN 10.3 g/dL (11.0-16.0); LYMPH # 1.7 K/uL (1.0-4.3); LYMPH % 28.9 % (20.0-40.0); MEAN CELL VOLUME 86.9 fL (81.0-99.0); MEAN CORPUSCULAR HEMOGLOBIN 28.6 pg (27.0-31.0); MEAN CORPUSCULAR HGB CONC 32.9 g/dL (33.0-37.0); MEAN PLATELET VOLUME 8.9 fL (7.2-11.7); MONO # 0.4 K/uL (0.0-0.8); MONO % 6.4 % (0.0-10.0); NEUT # 3.7 K/uL (1.8-7.0); NEUT % 63.5 % (50.0-75.0); RBC 3.59 Mil/uL (3.80-5.20); RED CELL DISTRIBUTION WIDTH 15.1 % (11.5-14.5); WHITE BLOOD COUNT 5.8 K/uL (4.8-10.8)
--- NOTE | 2017-04-06 14:30 | CP.PCM.DIS ---
Provider - Provider Date of Admission: 04/05/17 07:39 Attending physician: Alexandru Perez Time Spent in preparation of Discharge (in minutes): 30 Diagnosis - Discharge Diagnosis (1) S/P laparoscopic procedure Status: Acute (2) History of unilateral fallopian tube excision Status: Acute Hospital Course - Lab Results Lab Results: Most Recent Lab Values WBC 5.8 K/uL (4.8-10.8) 04/06/17 08:53 RBC 3.59 Mil/uL (3.80-5.20) L 04/06/17 08:53 Hgb 10.3 g/dL (11.0-16.0) L 04/06/17 08:53 Hct 31.2 % (34.0-47.0) L 04/06/17 08:53 MCV 86.9 fL (81.0-99.0) 04/06/17 08:53 MCH 28.6 pg (27.0-31.0) 04/06/17 08:53 MCHC 32.9 g/dL (33.0-37.0) L 04/06/17 08:53 RDW 15.1 % (11.5-14.5) H 04/06/17 08:53 Plt Count 191 K/uL (130-400) 04/06/17 08:53 MPV 8.9 fL (7.2-11.7) 04/06/17 08:53 Neut % (Auto) 63.5 % (50.0-75.0) 04/06/17 08:53 Lymph % (Auto) 28.9 % (20.0-40.0) 04/06/17 08:53 [place] % (Auto) 6.4 % (0.0-10.0) 04/06/17 08:53 Eos % (Auto) 1.0 % (0.0-4.0) 04/06/17 08:53 Baso % (Auto) 0.2 % (0.0-2.0) 04/06/17 08:53 Neut # 3.7 K/uL (1.8-7.0) 04/06/17 08:53 Lymph # 1.7 K/uL (1.0-4.3) 04/06/17 08:53 [place] # 0.4 K/uL (0.0-0.8) 04/06/17 08:53 Eos # 0.1 K/uL (0.0-0.7) 04/06/17 08:53 Baso # 0.0 K/uL (0.0-0.2) 04/06/17 08:53 PT 11.4 SECONDS (9.7-12.2) 04/05/17 07:58 INR 1.0 04/05/17 07:58 APTT 31 SECONDS (21-34) 04/05/17 07:58 Sodium 136 mmol/L (132-148) 04/05/17 05:36 Potassium 4.8 mmol/L (3.6-5.2) 04/05/17 05:36 Chloride 101 mmol/L (98-107) 04/05/17 05:36 Carbon Dioxide 23 mmol/L (22-30) 04/05/17 05:36 Anion Gap 17 (10-20) 04/05/17 05:36 BUN 8 mg/dL (7-17) 04/05/17 05:36 Creatinine 0.7 MG/DL (0.7-1.2) 04/05/17 05:36 Est GFR ( Amer) > 60 04/05/17 05:36 Est GFR (Non-Af Amer) > 60 04/05/17 05:36 Random Glucose 93 mg/dL (65-105) 04/05/17 05:36 Calcium 8.7 mg/dl (8.6-10.4) 04/05/17 05:36 Total Bilirubin 0.9 mg/dL (0.2-1.3) 04/05/17 05:36 AST 26 U/L (14-36) 04/05/17 05:36 ALT 19 U/L (9-52) 04/05/17 05:36 Alkaline Phosphatase 56 U/L (38-126) 04/05/17 05:36 Total Protein 8.2 g/dL (6.3-8.3) 04/05/17 05:36 Albumin 3.9 g/dL (3.5-5.0) 04/05/17 05:36 Globulin 4.3 gm/dL (2.2-3.9) H 04/05/17 05:36 Albumin/Globulin Ratio 0.9 (1.0-2.1) L 04/05/17 05:36 Beta HCG, Quant 3921.70 mIU/ML 04/05/17 05:36 Urine Color Red (YELLOW) 04/05/17 07:06 Urine Clarity Hazy (Clear) 04/05/17 07:06 Urine pH 6.0 (5.0-8.0) 04/05/17 07:06 Ur Specific Pur[place] 1.013 (1.003-1.030) 04/05/17 07:06 Urine Protein 2+ mg/dL (NEGATIVE) H 04/05/17 07:06 Urine Glucose (UA) Normal mg/dL (Normal) 04/05/17 07:06 Urine Ketones Negative mg/dL (NEGATIVE) 04/05/17 07:06 Urine Blood 3+ (NEGATIVE) H 04/05/17 07:06 Urine Nitrate Negative (NEGATIVE) 04/05/17 07:06 Urine Bilirubin Negative (NEGATIVE) 04/05/17 07:06 Urine Urobilinogen Normal mg/dL (0.2-1.0) 04/05/17 07:06 Ur Leukocyte Esterase Neg Demarco/uL (Negative) 04/05/17 07:06 Urine WBC (Auto) 2 /hpf (0-5) 04/05/17 07:06 Urine RBC (Auto) 104 /hpf (0-3) H 04/05/17 07:06 Ur Squamous Epith Cells 6 /hpf (0-5) H 04/05/17 07:06 Urine Bacteria Few (<OCC) H 04/05/17 07:06 Blood Type O POSITIVE 04/05/17 05:36 Antibody Screen Negative 04/05/17 05:36 - Hospital Course Hospital Course: Pt is s/p laparoscopy with Left partial Salpingectomy due to a Right ampullary ectopic Gestation. POD #1, Clinically Stabe. Pt will be discharged home today to f/u at the office. Discharge Exam - Head Exam Head Exam: NORMAL INSPECTION - Eye Exam Eye Exam: EOMI - Respiratory Exam Respiratory Exam: Clear to PA & Lateral, NORMAL BREATHING PATTERN - Cardiovascular Exam Cardiovascular Exam: REGULAR RHYTHM - GI/Abdominal Exam GI & Abdominal Exam: Normal Bowel Sounds, Unremarkable Additional comments: Laparoscopic incisional ports - clean and dry. - Exam External exam: NORMAL EXTERNAL EXAM - Extremities Exam Extremities exam: normal inspection - Neurological Exam Neurological exam: Oriented x3 Discharge Plan - Discharge Medications Prescriptions: RX: oxyCODONE/Acetaminophen [Percocet 5/325 mg Tab] 2 tab PO Q4H PRN #20 tab PRN Reason: Pain, Severe (8-10) - Follow Up Plan Condition: SERIOUS Disposition: HOME/ ROUTINE Instructions: Salpingectomy (DC) Additional Instructions: take meds as ordered, drink plenty of fluids, eat fruits and vegetables, keep operative sites clean and dry, call md for appointment, notify md. for fever as needed, no sex till advised Clinical Quality Measures - Date & Time of Discharge Summary Date of Discharge Summary: 04/06/17 Time of Discharge Summary: 12:30
--- NOTE | 2017-04-08 20:56 | PCM.OP ---
Operative Report - Operative Report Date of Surgery/Procedure: 04/05/17 Time of Surgery/Procedure: 09:00 Surgeon: Dr Perez Customer Sales Representative: Dr Ervin Anesthesia/Sedation: General Endotracheal Pre-Operative Diagnosis: Hemoperitoneum secondary to ruptured ectopic gestation Post-Operative Diagnosis: Same as preop diagnosis. Pelvic adhesions. Danny-maggy -Dinesh syndrome Indication for Surgery: Hemoperitoneum with ectopic gestation Operative Findings: Ruptured left isthmo- ampulary ectopic gestation with hemoperineum with clots of about 100mls. There were fibrinous adhesions from the left ovary to the tubal . The same fobrinous adhesions were seen between the liver capsule and the peritoneum of the anterior abdominal wall. The right fallopian tube was absent from a previous surgery for ectopic gestation. The ovaries on both sides appeared normal. Procedure/Operation Description: After obtaining informed consent, Pt was sent to the OR with IV running and folleys catheter in place. Pt was placed in a supine position on the OR table and after adequate general anesthesia, Pt was placed in a dorso lithotomy position and was preped and draped in the usual sterile fashion. The posterior wall of the vagina was depressed using the weighted speculum and the anterior vaginal wall was elvated with an L-shaped retracter to expose the cervix. The anterior lip of the cervix was held with a single tooth tenaculum and the uterus was sounded to a deapth of 8cm. The cervical canal was dilated with Hegars dilators to 8mm and a HUMI uterine manupulator inserted and secured in place with the air ballon attached. Attention was then turned to the anterior abdominal wall, where a 5mm incision was made into the umbilical fold after tenting it up with towel clips. A veress needele was inserted and the abdominal cavity filled with CO2 gas to a pressure of 15mmHg. Two 5mm trocar and sleeves, one at the umbilicus and the other at the left lower quadrant and a 10mm trocar and sleeve were placed in the right lower quadrant. The laparoscope was introduced to the umbilical port first and was used to aid in the placement of the other ports. The above findings were noted at laparascopy. Using a lapascopic grasper, the left ampullary ectopic gestation was elevated and with the 5mm ligature device, it was fully excised. The excised tissue was removed from the abdomen by means of an endocatch bag introduced through the 10mm incision. Pictures were obtained before and after excision of the tubal . A full assessment of the abdominal cavity was done with the laparascope where adhesions between the liver capsule and anterior abdominal wall were identified. The hemoperitoneum was suctioned off and the pelvix washed with normal saline using the suction device. Once the procedure has been completed, the laparoscopic intruments were removed and the gas was disconnected. The laparoscopic ports/trocar/sleeves were removed after letting out all the gas in the abdominal cavity. The incisions were closed using # 4-0 biosyn. All counts of instruments and laparotomy pads, gauze used, were correct X3. The HUMI uterine manupulator was removed. Pt was repositioned in the supine position and was sent to the recovery room ,awake and in stable condition. Estimated Blood Loss: 150 Blood Replaced: None Sponge/Instrument Count: Correct X3 Drains: None Complications: None Specimen: Excised Left Ectopic gestation Discharge & Condition: Stable
== END 2017-04-06 13:50 | disposition home or self-care (01) ==
LOC: C.ER 03:43 → INTOOBSV 07:39 → C.4M 07:39
PROVIDERS: ADMIT Obstetrics & Gynecology; ATTEND Obstetrics & Gynecology
PROC: 0UB64ZZ Excision of Left Fallopian Tube, Percutaneous Endoscopic Approach (ICD-10-PCS; principal; 2017-04-05 07:45)
PROC: 10T24ZZ Resection of Products of Conception, Ectopic, Percutaneous Endoscopic Approach (ICD-10-PCS; 2017-04-05 07:45)
DX: O00.10 Tubal pregnancy without intrauterine pregnancy (principal); K66.1 Hemoperitoneum; D57.1 Sickle-cell disease without crisis; Z88.0 Allergy status to penicillin; Z90.79 Acquired absence of other genital organ(s)
CPT/HCPCS: 36415; 59120; 76830; 76856; 80053; 81001; 84702; 85025; 85610; 85730; 86850; 86900; 88305; 96361; 96374; 96375; 96376; 99285; G0378; J1170; J1885; J2270; J2405; J2704; J2710; J2765; J3010; J7040; J7120

== ENCOUNTER 2017-12-01 20:36 | Emergency (ER) | payer MEDICAID ==
[2017-12-01 20:37] VITALS: BMI 31.1
--- NOTE | 2017-12-01 21:46 | C.PDOC ---
History Of Present Illness Patient is a 37 y/o female who presents to the ED with a complaint of a right- sided headache for the last 3 days. Patient notes headache waxes and wanes; admits to taking Tylenol 650mg once today and twice yesterday with no relief. Patient also notes taking OTC migraine medication 2 days ago with intermittent relief. Patient mentions complaints of sore throat, dry and unproductive cough, loose stool, and crampy lower abdominal pain. Patient admits to currently having a 4 y/o at home with a viral syndrome. Patient has no other physical complaints at this time. Time Seen by Provider: 12/01/17 21:20 Chief Complaint (Nursing): Abdominal Pain History Per: Patient History/Exam Limitations: no limitations Onset/Duration Of Symptoms: Days (3 days ) Current Symptoms Are (Timing): Still Present Location Of Pain/Discomfort: Suprapubic, Other (lower abdominal) Associated Symptoms: Diarrhea (loose stool), Other (headache, cough, sore throat ) Recent travel outside of the [place]: No Past Medical History Reviewed: Historical Data, Nursing Documentation, Vital Signs Vital Signs: Last Vital Signs Temp 98.4 F 12/01/17 22:36 Pulse 78 12/01/17 22:36 Resp 18 12/01/17 22:36 BP 121/86 12/01/17 22:36 Pulse Ox 98 12/01/17 22:36 - Medical History PMH: Sickle Cell Disease (Sickel Cell Anemia) Denies: Chronic Kidney Disease Other Surgeries: EXCISION OF LEFT FALLOPIAN TUBE, PERC ENDO APPROACH (04/05/17) . RESECTION OF ECTOPIC POC, PERC ENDO APPROACH (04/05/17) - [facility] EXCISION OF LEFT FALLOPIAN TUBE, PERC ENDO APPROACH (04/05/17) RESECTION OF ECTOPIC POC, PERC ENDO APPROACH (04/05/17) SUTURE OF LIP LACERATION (10/19/13) TETANUS TOXOID ADMINIST (10/19/13) Family History: States: No Known Family Hx - Social History Hx Tobacco Use: No Hx Alcohol Use: No Hx Substance Use: No - Immunization History Hx Tetanus Toxoid Vaccination: No Hx Influenza Vaccination: No Hx Pneumococcal Vaccination: No Review Of Systems ENT: Positive for: Throat Pain (sore throat) Respiratory: Positive for: Cough (dry). Negative for: Sputum Gastrointestinal: Positive for: Abdominal Pain (lower abdominal), Diarrhea ( loose stool ) Neurological: Positive for: Headache Physical Exam - Physical Exam Appears: Well, Non-toxic, No Acute Distress Skin: Normal Color, Warm, Dry Head: Atraumatic, Normacephalic Ear(s): Bilateral: Normal Nose: Discharge (clear, watery), Other (bilateral ++ erythema to bilateral nasal passages) Throat: Normal, No Erythema, No Exudate Chest: Symmetrical Cardiovascular: Rhythm Regular, No Murmur Respiratory: Normal Breath Sounds, No Rales, No Rhonchi, No Wheezing Neurological/Psych: Oriented x3, Normal Speech, Normal Cognition ED Course And Treatment - Laboratory Results Lab Interpretation: Normal (ua neg, tox neg) Urine POC: Negative O2 Sat by Pulse Oximetry: 99 Pulse Ox Interpretation: Normal Progress Note: Urinalysis/U preg, Tylenol administered. Medical Decision Making Medical Decision Making: typical viral syndrome vs Influenza (low likely, though considering epidemic, will treat empirically) SEXTON prob sinus etiology, considering unilateral and + nasal congestion U-preg neg (h/o ectopic x 2) Disposition Doctor Will See Patient In The: Office Counseled Patient/Family Regarding: Studies Performed - Disposition Referrals: Nigel Hopkins MD [Medical Doctor] - Disposition: HOME/ ROUTINE Disposition Time: 22:25 Condition: GOOD Additional Instructions: flu/influenza/viral syndrome Dayquil/Nyquil or other Flu/Cold medicines which are "Cold and Sinus" preparations which contain nasal decongestants, which will help with your sinus headache pain . Take liberally, per pachage instructions, as needed for symptoms Symptoms typically last 1-2 WEEKS- be patient. Test NEGATIVE Call your child's Vice President Financial to consider empiric treatment for Influenza for your child @ home. Prescriptions: Oseltamivir [Tamiflu] 75 mg PO BID #9 cap Instructions: Flu, Adult (DC), Sinus Headache (DC) Forms: [facility] (Slovak), Work Excuse - Clinical Impression Clinical Impression: Viral syndrome - Scribe Statement The provider has reviewed the documentation as recorded by the Scribe Malaika Ramos All medical record entries made by the Scribe were at my direction and personally dictated by me. I have reviewed the chart and agree that the record accurately reflects my personal performance of the history, physical exam, medical decision making, and the department course for this patient. I have also personally directed, reviewed, and agree with the discharge instructions and disposition.
[2017-12-01 21:51] LABS: HCG,QUALITATIVE URINE NEGATIVE (NEGATIVE)
[2017-12-01 21:52] LABS: SQUAMOUS EPITHIAL 3 /hpf (0-5); URINE BACTERIA RARE (<OCC); URINE BILIRUBIN NEGATIVE (NEGATIVE); URINE BLOOD NEGATIVE (NEGATIVE); URINE CLARITY Clear (Clear); URINE COLOR Straw (YELLOW); URINE GLUCOSE (UA) NORMAL (Normal); URINE LEUKOCYTE ESTERASE NEG Leu/uL (Negative); URINE NITRATE NEGATIVE (NEGATIVE); URINE PROTEIN NEGATIVE (NEGATIVE); URINE UROBILINOGEN NORMAL mg/dL (0.2-1.0)
[2017-12-01 21:58] LABS: BARBITURATES, UR NEGATIVE (NEGATIVE); BENZODIAZEPINES, UR NEGATIVE (NEGATIVE); OPIATES, UR NEGATIVE (NEGATIVE); PHENCYCLIDINE, UR NEGATIVE (NEGATIVE)
[2017-12-01 22:38] VITALS: BP 121/86; PULSE 78; RESP 18; TEMP 98.4
[2017-12-02 00:41] VITALS: O2SAT 99
== END 2017-12-01 22:37 | disposition home or self-care (01) ==
LOC: C.ER 20:36
DX: B34.9 Viral infection, unspecified (principal)

== ENCOUNTER 2018-11-23 08:48 | Emergency (ER) | payer MEDICAID ==
[2018-11-23 08:48] VITALS: BMI 31.1
[2018-11-23 09:00] VITALS: BP 115/76; PULSE 68; RESP 16; TEMP 97.8; O2SAT 100
--- NOTE | 2018-11-23 11:38 | C.PDOC ---
History Of Present Illness 38 y/o female pt presents to the ER c/o left foot pain for x2 days. Pt reports she was on her son's hover board when she fell off backwards, hurting her foot and striking the back of her head. Pt denies LOC, nausea, vomiting, dizziness, light headedness, SOB, focal weakness, neck pain, hematuria or dysuria. Pt is able to ambulate with pain. Time Seen by Provider: 11/23/18 09:04 Chief Complaint (Nursing): Lower Extremity Problem/Injury History Per: Patient History/Exam Limitations: no limitations Onset/Duration Of Symptoms: Days (x2) Current Symptoms Are (Timing): Still Present - Ankle/Foot Description Of Injury: Fell Past Medical History Reviewed: Historical Data, Nursing Documentation, Vital Signs Vital Signs: Last Vital Signs Temp 97.8 F 11/23/18 08:58 Pulse 68 11/23/18 08:58 Resp 16 11/23/18 08:58 BP 115/76 11/23/18 08:58 Pulse Ox 100 11/23/18 08:58 - Medical History PMH: Sickle Cell Disease (Sickel Cell Anemia) - [facility] EXCISION OF LEFT FALLOPIAN TUBE, PERC ENDO APPROACH (04/05/17) RESECTION OF ECTOPIC POC, PERC ENDO APPROACH (04/05/17) SUTURE OF LIP LACERATION (10/19/13) TETANUS TOXOID ADMINIST (10/19/13) Family History: States: Unknown Family Hx - Social History Hx Tobacco Use: No Hx Alcohol Use: No Hx Substance Use: No - Immunization History Hx Tetanus Toxoid Vaccination: No Hx Influenza Vaccination: No Hx Pneumococcal Vaccination: No Review Of Systems Except As Marked, All Systems Reviewed And Found Negative. Constitutional: Negative for: Other (focal weakness ) ENT: Negative for: Ear Pain Cardiovascular: Negative for: Light Headedness Respiratory: Negative for: Shortness of Breath Gastrointestinal: Negative for: Nausea, Vomiting Genitourinary: Negative for: Dysuria, Hematuria Musculoskeletal: Negative for: Neck Pain Skin: Negative for: Bruising Neurological: Negative for: Dizziness, Other (LOC) Physical Exam - Physical Exam Appears: Non-toxic, No Acute Distress Skin: Warm, Dry Head: Atraumatic, Normacephalic, No Tenderness, No Swelling, No Abrasion, No Laceration Eye(s): bilateral: Normal Inspection Neck: Normal ROM, Supple Cardiovascular: Rhythm Regular Respiratory: Normal Breath Sounds Gastrointestinal/Abdominal: Soft, No Tenderness Back: No CVA Tenderness Extremity: Normal ROM (x4), Tenderness (to lateral aspect of left foot ), No Pedal Edema, No Calf Tenderness, Capillary Refill (<2 sec), No Deformity, No Swelling Pulses: Left Dorsalis Pedis: Normal Neurological/Psych: Oriented x3, Normal Speech, Normal Cognition, Normal Motor, Normal Sensation ED Course And Treatment O2 Sat by Pulse Oximetry: 100 (RA) Pulse Ox Interpretation: Normal Medical Decision Making Medical Decision Making: Plans: -- tylenol -- left foot XR Left foot XR results Accession No. : [id number] Patient Name / ID : ROBIN Campbell / [id number] Exam Date : 11/23/2018 09:09:59 ( Approved ) Study Comment : Sex / Age : F / 38Y Creator : elaine erickson Dictator : Raiza Bettencourt MD Break And Load Operator : Vending Machine Coin Collector : Raiza Bettencourt MD Approver2 : Report Date : 11/23/2018 09:21:03 My Comment : Date of service: 11/23/2018 PROCEDURE: Left Foot Radiographs. HISTORY: Pain to base of 5th metatarsal s/p fall COMPARISON: None. FINDINGS: BONES: Bone alignment and mineralization are normal. There is no acute displaced fracture or bone destruction. JOINTS: Normal. SOFT TISSUES: Normal. OTHER FINDINGS: None. IMPRESSION: No acute fracture or dislocation. Disposition - Disposition Referrals: Nigel Hopkins MD [Medical Doctor] - Disposition: HOME/ ROUTINE Disposition Time: 10:20 Condition: GOOD Additional Instructions: NICOLE KELLY, thank you for letting us take care of you today. The emergency medical care you received today was directed at your acute symptoms. If you were prescribed any medication, please fill it and take as directed. It may take several days for your symptoms to resolve. Return to the Emergency Department if your symptoms worsen, do not improve, or if you have any other problems. Please contact your doctor or call one of the physicians/clinics you have been referred to that are listed on the Patient Visit Information form that is included in your discharge packet. Bring any paperwork you were given at discharge with you along with any medications you are taking to your follow up visit. Our treatment cannot replace ongoing medical care by a primary care provi av outside of the emergency department. Thank you for allowing the [facility] team to be part of your care today. Follow up with your primary care doctor in 2-3 days for re-evaluation and further management. Prescriptions: Ibuprofen [Motrin] 600 mg PO Q6 PRN #20 tab PRN Reason: Pain, Moderate (4-7) Instructions: Foot Sprain (DC) Forms: [facility] (Welsh) - Clinical Impression Clinical Impression: Foot sprain - Scribe Statement The provider has reviewed the documentation as recorded by the Scribe Gill Dent Provider Attestation: All medical record entries made by the Scribe were at my direction and personally dictated by me. I have reviewed the chart and agree that the record accurately reflects my personal performance of the history, physical exam, medical decision making, and the department course for this patient. I have also personally directed, reviewed, and agree with the discharge instructions and disposition.
--- NOTE | 2018-11-23 12:29 | RAD ---
Date of service: 11/23/2018 PROCEDURE: Left Foot Radiographs. HISTORY: Pain to base of 5th metatarsal s/p fall COMPARISON: None. FINDINGS: BONES: Bone alignment and mineralization are normal. There is no acute displaced fracture or bone destruction. JOINTS: Normal. SOFT TISSUES: Normal. OTHER FINDINGS: None. IMPRESSION: No acute fracture or dislocation.
== END 2018-11-23 09:25 | disposition home or self-care (01) ==
LOC: C.ER 08:48
DX: S93.602A Unspecified sprain of left foot, initial encounter (principal); W19.XXXA Unspecified fall, initial encounter